=== PATIENT | male | born 1985 | race African-American/Black ===

== ENCOUNTER 2017-11-26 10:45 | Emergency (ER) | payer OTHER ==
[~2017-11-26] VITALS: Ht 160 cm; Wt 63.5 kg
--- NOTE | 2017-11-26 10:56 | NUR ---
at bedside to examine patient.
[2017-11-26] MEDS ORDERED: risperiDONE 1 MG TABLET PO SCH (11:00)
--- NOTE | 2017-11-26 11:09 | NUR ---
A call to Maco Ty report given and ETA of 40 minutes received. Both Md. and recharger. notified.
[2017-11-26 11:21] LABS: BASOPHILS % (AUTO) 0.2 % (0.0-2.0); EOSINOPHILS # (AUTO) 0.2 K/uL (0.0-0.7); EOSINOPHILS % (AUTO) 3.7 % (0.0-7.0); HEMATOCRIT 39.2 % (36.7-47.1); HEMOGLOBIN 13.7 g/dL (12.5-16.3); LYMPHOCYTES % (AUTO) 39.6 % (20.5-51.5); MEAN CORPUSCULAR HEMOGLOBIN 33.5 uug (23.8-33.4); MEAN CORPUSCULAR HGB CONC 35 g/dL (32.5-36.3); MEAN CORPUSCULAR VOLUME 96.3 fL (73.0-96.2); MONOCYTES # (AUTO) 0.4 K/uL (2.0-10.0); MONOCYTES % (AUTO) 8.9 % (0.0-11.0); NEUTROPHILS # (AUTO) 2.4 K/uL (1.8-8.9); NEUTROPHILS % (AUTO) 47.6 % (38.5-71.5); PLATELET COUNT (AUTO) 235 K/uL (152-348); RED BLOOD CELL COUNT(AUTO) 4.07 MIL/uL (4.06-5.63)
[2017-11-26 11:25] LABS: CARBON DIOXIDE 30 mmol/L (21-32); CHLORIDE 101 mmol/L (98-107); CREATININE 0.9 mg/dL (0.6-1.3); GLUCOSE 89 mg/dL (74-106); POTASSIUM 3.7 mmol/L (3.5-5.1); UREA NITROGEN, BLOOD 17 mg/dL (7-18)
--- NOTE | 2017-11-26 11:30 | NUR ---
Maco Ty in the unit to examine patient.
[2017-11-26 11:31] LABS: ACETAMINOPHEN < 2.0 ug/mL (10-30); ALANINE AMINOTRANSFERASE 38 U/L (16-63); ALKALINE PHOSPHATASE 74 U/L (50-136); ASPARTATE AMINOTRANSFERASE 54 U/L (15-37); BILIRUBIN,DIRECT 0.2 mg/dL (0.0-0.2); BILIRUBIN,TOTAL 0.8 mg/dL (0.2-1.0)
--- NOTE | 2017-11-26 12:02 | NUR ---
After been assessed by crisis lumber piler operator Maco Ty, patient left room refusing to received his prescriptions refill and dcd intructions. after running after him and persuaded to at least take his prescriptions with him patient left stating. "I'll come back later" and crisis lumber piler operator aware.
[2017-11-26 12:15] LABS: ETHANOL < 3 MG/DL (0-0)
== END 2017-11-26 12:10 | disposition home or self-care (01) ==
LOC: ER 10:52
DX: F20.9 Schizophrenia, unspecified (principal); Z88.0 Allergy status to penicillin
CPT/HCPCS: 80048; 80076; 85025; 99284; A4663; G0480 ×2; G0481

== ENCOUNTER 2018-04-11 04:11 | Emergency (ER) | payer OTHER ==
[~2018-04-11] VITALS: Ht 175.3 cm; Wt 69.9 kg
--- NOTE | 2018-04-11 04:38 | NUR ---
PATIENT WALKED INTO ER WITH C/O ABDOMINAL AND CHEST PAIN SINCE YESTERDAY. DESCRIBES CHEST PAIN AT PRESSURE 7/10 NON RADIATING.
[2018-04-11] MEDS ORDERED: MAG HYDROX/AL HYDROX/SIMETH 30 ML LIQUID UDC ONE (04:52)
[2018-04-11] MEDS ORDERED: PANTOPRAZOLE SODIUM 40 MG TABLET.DR PO ONE (04:52)
[2018-04-11] MEDS: PANTOPRAZOLE SODIUM 40 MG TABLET.DR PO ONE (04:55)
[2018-04-11] MEDS: MAG HYDROX/AL HYDROX/SIMETH 30 ML LIQUID UDC PO ONE (04:56)
--- NOTE | 2018-04-11 04:56 | NUR ---
MEDICATION GIVEN TO PATIENT. REFUSED TO DRINK MAALOX, PATIENT STATES "I DON'T DO LIQUIDS." GAVE TABLET TO PATIENT. PATIENT PLACED TABLET IN HIS MOUTH, AND REMOVED TABLET WHEN THIS NURSE EXITED THE ROOM. DR LEO NOTIFIED, DR LEO WENT BACK INTO PATIENT'S ROOM AND SPOKE WITH PATIENT. HE AGREED TO TAKE IT. WHEN THIS NURSE WENT BACK INTO THE ROOM. PATIENT PLACED TABLET IN HIS MOUTH AND TOOK A SIP OF WATER, BUT STILL REFUSED MAALOX. AWARE.
[2018-04-11 05:18] LABS: BASOPHILS % (AUTO) 0.2 % (0.0-2.0); EOSINOPHILS # (AUTO) 0.2 K/uL (0.0-0.7); EOSINOPHILS % (AUTO) 4.4 % (0.0-7.0); HEMATOCRIT 33.7 % (36.7-47.1); HEMOGLOBIN 11.9 g/dL (12.5-16.3); LYMPHOCYTES # (AUTO) 2.4 K/uL (20.0-40.0); LYMPHOCYTES % (AUTO) 46.3 % (20.5-51.5); MEAN CORPUSCULAR HEMOGLOBIN 33.8 uug (23.8-33.4); MEAN CORPUSCULAR HGB CONC 35 g/dL (32.5-36.3); MEAN CORPUSCULAR VOLUME 95.5 fL (73.0-96.2); MONOCYTES # (AUTO) 0.4 K/uL (2.0-10.0); MONOCYTES % (AUTO) 7.7 % (0.0-11.0); NEUTROPHILS # (AUTO) 2.1 K/uL (1.8-8.9); NEUTROPHILS % (AUTO) 41.4 % (38.5-71.5); PLATELET COUNT (AUTO) 223 K/uL (152-348); RED BLOOD CELL COUNT(AUTO) 3.53 MIL/uL (4.06-5.63); WHITE BLOOD COUNT (AUTO) 5.1 K/uL (3.6-10.2)
[2018-04-11 05:28] LABS: CARBON DIOXIDE 28 mmol/L (21-32); CHLORIDE 104 mmol/L (98-107); CREATININE 0.8 mg/dL (0.6-1.3); GLUCOSE 97 mg/dL (74-106); POTASSIUM 3.5 mmol/L (3.5-5.1); UREA NITROGEN, BLOOD 19 mg/dL (7-18)
[2018-04-11 05:33] LABS: ALANINE AMINOTRANSFERASE 29 U/L (16-63); ALKALINE PHOSPHATASE 90 U/L (50-136); ASPARTATE AMINOTRANSFERASE 32 U/L (15-37); BILIRUBIN,DIRECT 0.1 mg/dL (0.0-0.2); BILIRUBIN,TOTAL 0.3 mg/dL (0.2-1.0); LIPASE 170 U/L (73-393); TOTAL PROTEIN, SERUM 7.1 g/dL (6.4-8.2)
[2018-04-11 06:00] VITALS: BP 126/74
== END 2018-04-11 06:02 | disposition home or self-care (01) ==
LOC: ER 04:17
DX: K29.70 Gastritis, unspecified, without bleeding (principal); F17.200 Nicotine dependence, unspecified, uncomplicated; Z88.0 Allergy status to penicillin
CPT/HCPCS: 36415; 83690; 85025; 93005; A4663